=== PATIENT | female | born 1960 | race Caucasian/White ===

== ENCOUNTER 2016-10-16 15:19 | Emergency (ER) | payer MEDICAID ==
[2016-11-15 11:08] VITALS: BMI 20.3
== END 2016-10-16 20:20 | disposition home or self-care (01) ==
LOC: D.ER 15:19
DX: S09.90XA Unspecified injury of head, initial encounter (principal); W19.XXXA Unspecified fall, initial encounter; Y93.89 Activity, other specified; Y92.019 Unspecified place in single-family (private) house as the place of occurrence of the external cause; R42 Dizziness and giddiness; S50.01XA Contusion of right elbow, initial encounter

== ENCOUNTER 2016-11-14 20:47 | Inpatient (IN) | payer MEDICAID ==
[~2016-11-14] VITALS: Ht 170.2 cm; Wt 59.0 kg
[2016-11-14 21:39] LABS: BASOPHILS 0.1 % (0.0-2.0); EOSINOPHILS 0.1 % (0-7); HEMATOCRIT 40.2 % (36.0-48.0); HEMOGLOBIN 13.7 g/dL (12-16); IMMATURE GRANULOCYTES 0.3 % (0-5); LYMPHOCYTES 12.2 % (15-50); MCH 32.8 pg (26.0-34.0); MCHC 34.1 g/dL (31.0-37.0); MCV 96.2 fL (80.0-100.0); MEAN PLATELET VOLUME 10.5 fL (7.4-10.4); MONOCYTES 12.2 % (2-11); NEUTROPHILS 75.1 % (40-80); PLATELET COUNT 208 10x3/uL (130-400); RBC 4.18 10x6/uL (4.00-5.40); RDW 15.2 % (11.5-14.5); WBC 7.6 10x3/uL (4.8-10.8)
[2016-11-14 21:41] LABS: UDS - AMPHET NEGATIVE QUAL (NEGATIVE); UDS - BARB NEGATIVE QUAL (NEGATIVE); UDS - BENZO POSITIVE QUAL (NEGATIVE); UDS - COCAINE NEGATIVE QUAL (NEGATIVE); UDS - METH NEGATIVE QUAL (NEGATIVE); UDS - OPIATE NEGATIVE QUAL (NEGATIVE); UDS - PCP NEGATIVE QUAL (NEGATIVE); UDS - THC POSITIVE QUAL (NEGATIVE)
[2016-11-14 21:43] LABS: APPEARANCE CLEAR (CLEAR); BILIRUBIN NEGATIVE (NEGATIVE); COLOR YELLOW (YELLOW); GLUCOSE NEGATIVE (NEGATIVE); KETONE MODERATE mg/dL (NEGATIVE); LEUKOCYTE ESTERASE TRACE (NEGATIVE); NITRITE NEGATIVE (NEGATIVE); PROTEIN 3+ mg/dL (NEGATIVE); SPECIFIC GRAVITY 1.015 (1.005-1.020); UROBILINOGEN NORMAL (NORMAL)
[2016-11-14 21:46] LABS: BACTERIA FEW /hpf (NONE SEEN); EPITHELIAL CELLS 0-5 /hpf (0-5); HYALINE CAST OCC /lpf (NONE SEEN); MUCUS <1+ /lpf (NONE SEEN); RED CELLS - URINE 0-5 /hpf (0-5); WHITE CELLS - URINE 0-5 /hpf (0-5)
[2016-11-14 21:54] LABS: ALBUMIN 3.8 g/dL (3.4-5.0); ALKALINE PHOSPHATASE 85 U/L (46-116); ALT (SGPT) 141 U/L (10-68); BILIRUBIN - TOTAL 0.88 mg/dL (0.2-1.3); CALC OSMOLALITY 305 mosm/kg (275-300); CALCIUM 10.2 mg/dL (8.5-10.1); CARBON DIOXIDE 20.8 mmol/L (21.0-32.0); CHLORIDE - SERUM 104 mmol/L (98-107); CREATININE - SERUM 0.7 mg/dL (0.6-1.3); GLUCOSE 113 mg/dL (74-106); POTASSIUM - SERUM 3.1 mmol/L (3.5-5.1); SODIUM 145 mmol/L (136-145); UREA NITROGEN 57 mg/dL (7-18); eGFR NON AFRICAN AMERICAN > 90 mL/min (90-120)
[2016-11-14 22:46] LABS: APTT 26.2 SECONDS (22.8-39.4); INR 0.97 (0.85-1.17); PROTIME 12.7 SECONDS (11.6-15.0)
[2016-11-14 23:25] LABS: CREATINE KINASE 3976 UL (21-215); MAGNESIUM - SERUM 2.5 mg/dL (1.8-2.4)
[2016-11-14 23:26] LABS: CKMB 50.7 U/L (0.0-3.6)
--- NOTE | 2016-11-15 00:30 | NUR ---
RECIEVED TO ROOM 2234 VIA STRECHER FROM ER ACCOMPAINED BY STAFF. ALERT,ORIENTED. BRUISING NOTED TO RIGHT EYE AND RIGHT ARM. IV INFUSING TO LEFT ARM WITHOUT REDNESS OR EDEMA NOTED. TRANSFERRED TO BED. TOLERATED WELL. CL IN REACH.
--- NOTE | 2016-11-15 02:45 | NUR ---
EYES CLOSED. RESP EVEN AND UNLAOBRED. CL IN REACH.
[2016-11-15 03:19] VITALS: BP 120/72; BMI 20.4
--- NOTE | 2016-11-15 05:51 | NUR ---
EYES CLOSED RESP EVEN AND UNALBORED.REMAINS NPO FOR POSSIBLE OR THIS AM. CL IN REACH.
--- NOTE | 2016-11-15 07:15 | NUR ---
REPORT RECEIVED FROM BRINE TANK SEPARATOR OPERATOR NURSE. CALL LIGHT IN REACH.
[2016-11-15 07:59] LABS: ALBUMIN 3.4 g/dL (3.4-5.0); ALKALINE PHOSPHATASE 80 U/L (46-116); ALT (SGPT) 143 U/L (10-68); CALC OSMOLALITY 307 mosm/kg (275-300); CALCIUM 9.9 mg/dL (8.5-10.1); CARBON DIOXIDE 23.8 mmol/L (21.0-32.0); CHLORIDE - SERUM 109 mmol/L (98-107); CREATININE - SERUM 0.8 mg/dL (0.6-1.3); GLUCOSE 103 mg/dL (74-106); POTASSIUM - SERUM 3.2 mmol/L (3.5-5.1); SODIUM 148 mmol/L (136-145); UREA NITROGEN 51 mg/dL (7-18); eGFR NON AFRICAN AMERICAN 78 mL/min (90-120)
--- NOTE | 2016-11-15 08:26 | NUR ---
ASSESSMENT COMPLETED. CONSENT FORMS SIGNED AND WITNESSED. PATIENT WAS TOO SHAKY TO SIGN SO WE DID A VERBAL CONSENT WHICH WAS WITNESSED BY TWO NURSES AND THE DOCTOR. PREOP MEDS ADMINISTERED WITH SIP OF WATER. CALL LIGHT IN REACH. WILL CONTINUE WITH PLAN OF CARE.
[2016-11-15 08:27] VITALS: BP 122/71
--- NOTE | 2016-11-15 10:34 | NUR ---
1 AMP OF BICARB IN BAG IN FUSING ON ADMIT OF 2ND AMP ORDER
[2016-11-15 11:08] VITALS: Ht 170.2 cm; Wt 59.0 kg
[2016-11-15 11:18] VITALS: BP 165/86
--- NOTE | 2016-11-15 11:18 | NUR ---
RECEIVED BACK TO ROOM FROM RECOVERY VIA BED. O2 @ 2L PER NC. HR 118 BUT STATES NO PAIN AT THIS TIME. CALL LIGHT IN REACH. WILL CONTINUE WITH PLAN OF CARE.
--- NOTE | 2016-11-15 13:17 | NUR ---
PERCOCET PO PER C.O PAIN. CALL LIGHT IN REACH.
[2016-11-15] MEDS ORDERED: KEFLEX500 MG PO (14:10)
[2016-11-15] MEDS ORDERED: PHENAZOPYRIDIN200 MG PO (14:11)
--- NOTE | 2016-11-15 15:38 | NUR ---
Patient Name: JOYCE ERNST Admission Status: ER Accout number: [id number] Admission Date: 11-14-2016 : 1960 Admission Diagnosis:FRACTURE OF UNSP PART OF NECK OF RIGHT FEMUR, INIT Attending: CASEY Current LOS: 1 Anticipated DC Date: 11-18-2016 Planned Disposition: Home Primary Insurance: [place] PRIVATE OPTIONS G[place] Discharge Planning Comments: CM MET WITH PATIENT REGARDING D/C NEEDS AND PLANS. PATIENT STATED SHE LIVES ALONE AND WILL NEED A CAB RIDE HOME WHEN DISCHARGED. PATIENT STATED SHE HAS A SISTER JAE CABRERA THAT LIVES OUT OF TOWN. PATIENT STATED SHE HAS A WALKER, WHEELCHAIR, AND SHOWER CHAIR AT HOME IF NEEDED. PATIENTS PCP IS DR. SHIN AND [facility]ES [facility] FOR HER PHARMACY. PATIENT DENIED HOME HEALTH NEEDS AT DISCHARGE. CM WILL CONTINUE TO FOLLOW PATIENT WITH DISCHARGE NEEDS AND PLANS. PCP DR. ALEIDA HILL ([facility]ARMACY- [phone] JAE CABRERA (SISTER) [phone] Science Writer: Edelmira Hamilton Is the patient Alert and Oriented? Yes 0 * How many steps to enter\exit or inside your home? 0 0 * PCP DR. SHIN 0 * Pharmacy [facility] 0 * Preadmission Environment Home Alone 0 * ADLs Independent 0 * Equipment Shower Chair Walker Wheelchair 0 * List name and contact numbers for known caregivers / representatives who currently or will assist patient after discharge: JAE CABRERA ([place]) [phone] 0 * Community resources currently utilized None 0 * Additional services required to return to the preadmission environment? Yes 0 * Can the patient safely return to the preadmission environment? Yes 0 * Has this patient been hospitalized within the prior 30 days at any hospital? No 0 Grand Total: 0
--- NOTE | 2016-11-15 15:48 | NUR ---
SLEEPING QUIETLY RESP EVEN AND UNLABORED AT PRESENT DSG INTACT TO HIP AT PRESENT.
--- NOTE | 2016-11-15 15:49 | NUR ---
TEMP WAS 101.5. PATIENT HAD 5 BLANKETS ON HER. BLANKETS REMOVED AND IS GIVEN TO PATIENT AND EXPLAINED. RETURN DEMONSTRATION. NORCO PO PER PAIN. WILL RECHECK TEMP IN ONE HOUR.
[2016-11-15 16:55] VITALS: BP 103/55
--- NOTE | 2016-11-15 17:59 | NUR ---
VERY SHAKY AND ANXIOUS. ATIVAN IVP PER ORDER. C/O PAIN OF 9 TO RIGHT HIP. PERCOCET PO. VANCOMYCIN IVPB. CALL LIGHT IN REACH.
--- NOTE | 2016-11-15 18:40 | NUR ---
NO CHANGES IN INITIAL ASSESSMENT. CALL LIGHT IN REACH. SCDs TO BLE. WILL CONTINUE WITH PLAN OF CARE.
[2016-11-15 21:03] VITALS: BP 114/77
[2016-11-16 00:59] VITALS: BP 127/59
[2016-11-16 04:00] VITALS: BP 117/55
[2016-11-16 06:35] LABS: BASOPHILS 0.2 % (0.0-2.0); EOSINOPHILS 0.2 % (0-7); IMMATURE GRANULOCYTES 1.1 % (0-5); LYMPHOCYTES 20.5 % (15-50); MCH 31.7 pg (26.0-34.0); MEAN PLATELET VOLUME 9.7 fL (7.4-10.4); MONOCYTES 17.1 % (2-11); NEUTROPHILS 60.9 % (40-80); PLATELET COUNT 194 10x3/uL (130-400); RDW 15.7 % (11.5-14.5)
[2016-11-16 06:36] LABS: HEMATOCRIT 27.5 % (36.0-48.0); HEMOGLOBIN 8.8 g/dL (12-16); MCV 98.9 fL (80.0-100.0); RBC 2.78 10x6/uL (4.00-5.40); WBC 5.3 10x3/uL (4.8-10.8)
[2016-11-16 06:39] LABS: ALBUMIN 2.6 g/dL (3.4-5.0); ANION GAP 12.1 mmol/L (8-16); BILIRUBIN - TOTAL 0.7 mg/dL (0.2-1.3); CALCIUM 7.9 mg/dL (8.5-10.1); CARBON DIOXIDE 26.9 mmol/L (21.0-32.0); CREATININE - SERUM 0.9 mg/dL (0.6-1.3); MAGNESIUM - SERUM 2.2 mg/dL (1.8-2.4); PHOSPHOROUS 2.1 mg/dL (2.5-4.9); PROTEIN - SERUM 5.7 g/dL (6.4-8.2)
--- NOTE | 2016-11-16 07:30 | NUR ---
RECIEVED PT DURING WALKING ROUNDS. PT RESTING IN BED WITH COMPLAINTS OF PAIN OF A 7 ON A SCALE OF 1-10. NO MEDICATION TO BE GIVEN AT THIS TIME. ASSESSMENT DONE PER FLOWSHEET. BED IN LOW POSITION AND CALL LIGHT LETTY FINNEY. WILL CONTINUE TO MONITOR.
--- NOTE | 2016-11-16 07:50 | NUR ---
POTASSIUM AND PHOS COVERED PER PROTOCOL AT THIS TIME. WILL FOLLOW PROTOCOL FOR FOLLOW UP LABS AND MEDICATION ADMINISTRATION. PT SLIGHTY DISORIENTED AT THIS TIME, REORIENTED TO PLACE EASILY. BED IN LOW POSITION AND ALARM IN PLACE. WILL CONTINUE TO MONITOR.
[2016-11-16 07:59] VITALS: BP 97/60
--- NOTE | 2016-11-16 08:00 | NUR ---
LYING IN BED,WITHOUT DISTRESS.PT WANTING TO KNOW WHEN SHE WOULD GET HER MORNING MEDS.INSTRUCTED HER APPROX 0900.PT REQUEST ANXIETY MEDS WITH AM MEDS. CALL LIGHT IN REACH
--- NOTE | 2016-11-16 08:55 | NUR ---
ADMINISTERED PAIN MEDICATION AND ATIVAN PER ORDER AT THIS TIME. PT SEEMED TO RELAX SHORTLY AFTER MEDICATION ADMINISTRATION. BED IN LOW POSITION AND CALL LIGHT LETTY FINNEY. WILL CONTINUE TO MONTIOR.
--- NOTE | 2016-11-16 11:45 | NUR ---
PT HAD ARMS DRAWN TO CHEST AND WAS CONTINUOUSLY SHAKING PRIOR TO ADMINISTRATION OF VODKA PER ORDER.
--- NOTE | 2016-11-16 11:45 | NUR ---
ADMINISTERED VODKA PER ORDER AT THIS TIME. SPOKE WITH BONITA WEINBERG BEFORE ADMINISTRATION ABOUT ADMINISTERING THE VODKA INSTEAD OF ALTERNATIVE AND WAS INSTRUCTED TO GO FOURTH WITH ADMINISTERING THE VODKA. PT DRANK ADMINISTERED DOSE AND PROCEEDED TO ASK "WHERE IS THE REST OF THE BOTTLE" I INFORMED THE PT THAT THIS WAS ALL THE AMOUNT SHE WAS ALLOWED TO HAVE AT THIS TIME. PT SITTING IN THE CHAIR WITH ALARM IN PLACE AND CALL LIGHT IN REACH. WILL CONTINUE TO MONITOR.
[2016-11-16 12:08] VITALS: BP 131/77
--- NOTE | 2016-11-16 12:42 | NUR ---
SECOND DOSE OF PHOS GIVEN AT THIS TIME PER ORDER. POTASSIUM LAB BACK AND PT STILL HYPOKALEMIC, ADMINISTERED 40MEQ PER PROTOCOL. WILL CONTINUE TO MONITOR.
--- NOTE | 2016-11-16 13:40 | NUR ---
UPON ENTERING PTS ROOM, JUICE WITH PHOS AND POTASSIUM MIXED IN WAS EMPTY BUT IT WAS THEM OBSERVED THAT THE JUICE HAD BEEN SPILLED IN THE BED. UNSURE OF HOW MUCH MEDICATION PT RECIEVED. WILL CONTINUE TO FOLLOW PROTOCOL.
[2016-11-16 16:23] VITALS: BP 128/75
[2016-11-16 19:00] VITALS: BP 110/75
--- NOTE | 2016-11-16 19:48 | NUR ---
PATIENT RESTING IN BED WITH EYES CLOSED. NO SIGNS OF DISTRESS NOTED. RESPIRATIONS EVEN AND UNLABORED. BED LOW. CALL LIGHT WITHIN REACH.
--- NOTE | 2016-11-16 22:29 | NUR ---
PT IS ASLEEP WITH HOB AT 30 DEGREES. EASY RESPIRATION AND NO O2 AT THIS TIME. HER LIGHT ARE ON AND THE TV IS GOING IF SHE FELL ASLEEP WATCHING TV. THE BED IS LOW, RAILS UP X'S 2 WITH THE CALL LIGHT AT HAND.
[2016-11-17] VITALS: BP 110/73
[2016-11-17 04:00] VITALS: BP 117/78
[2016-11-17 04:51] LABS: BASOPHILS 0.2 % (0.0-2.0); EOSINOPHILS 2.2 % (0-7); HEMATOCRIT 28.1 % (36.0-48.0); HEMOGLOBIN 9.1 g/dL (12-16); IMMATURE GRANULOCYTES 1.3 % (0-5); LYMPHOCYTES 35.5 % (15-50); MCH 31.7 pg (26.0-34.0); MCHC 32.4 g/dL (31.0-37.0); MCV 97.9 fL (80.0-100.0); MEAN PLATELET VOLUME 9.6 fL (7.4-10.4); MONOCYTES 18.3 % (2-11); NEUTROPHILS 42.5 % (40-80); PLATELET COUNT 175 10x3/uL (130-400); RBC 2.87 10x6/uL (4.00-5.40); RDW 14.9 % (11.5-14.5); WBC 5.5 10x3/uL (4.8-10.8)
[2016-11-17 05:06] LABS: CALCIUM 8.3 mg/dL (8.5-10.1); CHLORIDE - SERUM 105 mmol/L (98-107); POTASSIUM - SERUM 3.5 mmol/L (3.5-5.1); SODIUM 139 mmol/L (136-145)
[2016-11-17 05:07] LABS: CALC OSMOLALITY 276 mosm/kg (275-300); CREATININE - SERUM 0.6 mg/dL (0.6-1.3); GLUCOSE 101 mg/dL (74-106); UREA NITROGEN 10 mg/dL (7-18); eGFR NON AFRICAN AMERICAN > 90 mL/min (90-120)
[2016-11-17 08:04] VITALS: BP 118/83
--- NOTE | 2016-11-17 08:40 | NUR ---
PRN PERCOCET AND VODKA ADMINISTERED PER ORDER AT THIS TIME. PT LETHARGIC, BUT CONVERSANT WHEN SPOKEN TO. ASSESSMENT PERFORMED PER FLOWSHEET. DRESSING TO RIGHT HIP C/D/I. ENCOURAGED PT TO USE INCENTIVE SPIROMETER WITH 750ML OF INSPIRATORY VOLUME. PULLED UPRIGHT AND REPOSITIONED IN BED. IV TO LEFT WRIST PATENT WITH NO S/S OF INFILTRATION PRESENT. BOX ALARM IN USE AND ON FOR FALL PRECAUTIONS. SCD'S ON AND IN WORKING ORDER. CALL LIGHTIN REACH, SRX2 WITH BED IN LOWEST POSITION AND WHEELS LOCKED. DOOR REMAINS OPEN. WILL CONTINUE WITH PLAN OF CARE.
--- NOTE | 2016-11-17 09:00 | NUR ---
ABRAMS CARE PROVIDED WITH ABRAMS CARE WIPES.
--- NOTE | 2016-11-17 12:45 | NUR ---
20G IV SITED TO PT'S LEFT HAND X1 ATTEMPT. PT D/C HER LEFT HAND IV WITH CATH TIP INTACT. PT REMAINS CONFUSED. CALL LIGHT IN REACH, BOX ALARM ON AND IN WORKING ORDER. SRX2 WITH BED IN LOWEST POSITION AND WHEELS LOCKED. WILL CONTINUE WITH PLAN OF CARE.
--- NOTE | 2016-11-17 15:50 | NUR ---
GIVEN PRN TYLENOL PER ORDER FOR TEMPERATURE 100.4. PT REMAINS CONFUSED REGARDING SITUATION, PLACE AND TIME. CALL LIGHT IN REACH, WILL CONTINUE WITH PLAN OF CARE.
[2016-11-17 16:14] VITALS: BP 97/63
--- NOTE | 2016-11-17 17:10 | NUR ---
GIVEN PRN PERCOCET-10 PER ORDER FOR PAIN 8/10 INCISIONALLY. POSITIONED UPRIGHT IN BED, SO THAT SHE COULD EAT.
--- NOTE | 2016-11-17 19:25 | NUR ---
CM RECEIVED MD ORDER TO ARRANGE FOR INPATIENT ALCOHOL REHAB. PATIENT IS CONFUSED AND CANNOT PARTCIPATE IN THE ADMISSION PROCESS. THEY LIKELY WILL NOT TAKE A POD#2 PATIENT INTO AN ALCOHOL REHAB INPATIENT UNIT. CM WILL NEED TO CONTACT FACILITIES ON FRIDAY WHEN ADMINISTRATIVE AND NURSING PERSONNEL WILL BE AVAILABLE TO EVALUATE APPROPRAITENESS FOR THEIR SPECIFIC PROGRAM. PSYCH CONSULT MAYBE HELPFUL IN PLANNING. PATIENT IS UNABLE TO PARTICIPATE W/ PHYSICAL THERAPIST AT THIS TIME. CM WILL FOLLOW.
--- NOTE | 2016-11-17 19:45 | NUR ---
PATIENT RESTING IN BED. NO SIGNS OF DISTRESS NOTED. SOME CONFUSION. LINENS CHANGED. DENIES ANY NEEDS AT THIS TIME. BED LOW. CALL LIGHT IN REACH. ALARM ON.
[2016-11-17 21:00] VITALS: BP 112/80
--- NOTE | 2016-11-18 00:50 | NUR ---
PATIENT VERY CONFUSED. PULLED OUT IV. ATTEMPTING TO PULL OUT ABRAMS. NEW IV STARTED TO RIGHT FOREARM. ATTEMPTED TO REORIENT AND UNSUCCESFUL. DENIES NEEDS AT THIS TIME. BED LOW. CALL LIGHT IN REACH.
--- NOTE | 2016-11-18 02:16 | NUR ---
EYES CLOSED RESPIRATIONS WITH EASE AND UNLABORED. SR UP X2 CALL LIGHT WITHIN REACH.
[2016-11-18 05:00] VITALS: BP 120/72
[2016-11-18 05:32] LABS: BASOPHILS 0.2 % (0.0-2.0); EOSINOPHILS 2.3 % (0-7); HEMOGLOBIN 9.6 g/dL (12-16); IMMATURE GRANULOCYTES 0.8 % (0-5); MCH 31.8 pg (26.0-34.0); MCHC 33.1 g/dL (31.0-37.0); MEAN PLATELET VOLUME 9.5 fL (7.4-10.4); MONOCYTES 19.4 % (2-11); NEUTROPHILS 54.3 % (40-80); RBC 3.02 10x6/uL (4.00-5.40); RDW 14.1 % (11.5-14.5); WBC 5.2 10x3/uL (4.8-10.8)
[2016-11-18 05:40] LABS: PLATELET COUNT 220 10x3/uL (130-400)
[2016-11-18 05:49] LABS: CALC OSMOLALITY 276 mosm/kg (275-300); CALCIUM 8.8 mg/dL (8.5-10.1); CARBON DIOXIDE 27.8 mmol/L (21.0-32.0); CHLORIDE - SERUM 103 mmol/L (98-107); CREATININE - SERUM 0.6 mg/dL (0.6-1.3); GLUCOSE 100 mg/dL (74-106); SODIUM 140 mmol/L (136-145); UREA NITROGEN 7 mg/dL (7-18); eGFR NON AFRICAN AMERICAN > 90 mL/min (90-120)
--- NOTE | 2016-11-18 07:55 | NUR ---
AWAKE AND ALERT. IV TO RIGHT WRIST PATENT WITH NO S/S OF INFILTRATION PRESENT. SCD'S ON AND IN WORKING ORDER. PT ORIENTED TO SELF, PLACE AND SITUATION, BUT DISORIENTED TO TIME. BONITA DORMAN WITH DR VALENCIA SEEING PT AT THIS TIME. CALL LIGHT IN REACH AND BOX ALARM ON AND IN WORKING ORDER. WILL CONTINUE WITH PLAN OF CARE.
[2016-11-18 08:52] VITALS: BP 139/93
--- NOTE | 2016-11-18 09:34 | NUR ---
PRN PERCOCET-10 ADMINISTERED AT THIS TIME PER ORDER FOR INCISIONAL PAIN. TAKEN WITHOUT DIFFICULTY. DENIES NEEDS AT THIS TIME. ABRAMS PATENT AND DRAINING TO GRAVITY. WILL CONITNUE WITH PLAN OF CARE.
--- NOTE | 2016-11-18 10:15 | NUR ---
UP IN CHAIR PER PHYSICAL THERAPY AT THIS TIME. WILL CONTINUE WITH PLAN OF CARE. CALL LIGHT IN REACH.
--- NOTE | 2016-11-18 10:41 | NUR ---
Rehab Prescreening Consult recieved and the chart has been reviewed. Unfortunatley she has [employer] Private [employer] insurance which does not cover rehab at [facility]. Recommend a referral be made to another facility. Discussed with the CM Inna Santamaria RN. Juliann Corbett RN Clinical Liaison, Rehab
[2016-11-18 12:32] VITALS: BP 125/82
[2016-11-18 15:32] VITALS: BP 120/81
--- NOTE | 2016-11-18 17:52 | NUR ---
PRN PERCOCET-10 ADMINISTERED PER ORDER. ABRAMS CATHETER CARE PROVIDED WITH ABRAMS CATH CARE WIPES. CALL LIGHT IN REACH. WILL CONTINUE WITH PLAN OF CARE.
--- NOTE | 2016-11-18 18:45 | NUR ---
ABRAMS CATH D/C WITH CATH TIP INTACT. INSTRUCTED PT THAT SHE WOULD HAVE TO CALL WHEN SHE NEEDED TO VOID. PT VERBALIZED UNDERSTANDING.
[2016-11-18 21:00] VITALS: BP 124/81
--- NOTE | 2016-11-18 21:57 | NUR ---
PATIENT RESTING IN BED. NO SIGNS OF DISTRESS NOTED AT THIS TIME. PRN NORCO AND VODRA GIVEN AND PATIENT REQUEST. NO OTHER NEEDS VOICED AT THIS TIME. BED LOW. CALL LIGHT IN REACH.
--- NOTE | 2016-11-19 00:10 | NUR ---
PT IN BED WITH NO DISTRESS. RESPIRATIONS EVEN AND UNLABORED. SIDE RAILS ARE UP X 2. BED IS LOW. CALL LIGHT IS IN REACH.
[2016-11-19 01:00] VITALS: BP 130/77
[2016-11-19 04:54] LABS: BASOPHILS 0.2 % (0.0-2.0); EOSINOPHILS 2.3 % (0-7); HEMOGLOBIN 9.9 g/dL (12-16); IMMATURE GRANULOCYTES 0.7 % (0-5); LYMPHOCYTES 25.1 % (15-50); MCH 31.4 pg (26.0-34.0); MCV 95.2 fL (80.0-100.0); MEAN PLATELET VOLUME 9.9 fL (7.4-10.4); MONOCYTES 22.8 % (2-11); NEUTROPHILS 48.9 % (40-80); RBC 3.15 10x6/uL (4.00-5.40); RDW 13.9 % (11.5-14.5); WBC 6.1 10x3/uL (4.8-10.8)
[2016-11-19 05:00] VITALS: BP 122/69
[2016-11-19 05:00] LABS: PLATELET COUNT 304 10x3/uL (130-400)
[2016-11-19 05:09] LABS: CALC OSMOLALITY 276 mosm/kg (275-300); CALCIUM 8.8 mg/dL (8.5-10.1); CARBON DIOXIDE 27.6 mmol/L (21.0-32.0); CHLORIDE - SERUM 104 mmol/L (98-107); CREATININE - SERUM 0.6 mg/dL (0.6-1.3); GLUCOSE 97 mg/dL (74-106); MAGNESIUM - SERUM 1.6 mg/dL (1.8-2.4); PHOSPHOROUS 3.7 mg/dL (2.5-4.9); POTASSIUM - SERUM 3.8 mmol/L (3.5-5.1); SODIUM 140 mmol/L (136-145); UREA NITROGEN 6 mg/dL (7-18); eGFR NON AFRICAN AMERICAN > 90 mL/min (90-120)
--- NOTE | 2016-11-19 07:29 | NUR ---
AWAKE AND ALERT AT THIS TIME. EXPLAINED TO PT THAT A URINE SAMPLE NEEDED TO BE OBTAINED WHEN SHE WAS ABLE TO PROVIDE ONE. IV TO RIGHT WRIST S/L. BALTA MAT ALARM APPLIED TO BED. SCD'S ON AND IN WORKING ORDER. ASSESSMENT PERFORMED PER FLOW SHEET. ADMINISTERED PRN NORCO-10 FOR PAIN 9/10 INCISIONALLY. CALL LIGHT IN REACH, BED IN LOWEST POSITION WITH SRX2 AND WHEELS LOCKED. PT SELF POSITIONS IN BED FOR COMFORT. WILL CONTINUE WITH PLAN OF CARE.
[2016-11-19 08:33] VITALS: BP 136/94
--- NOTE | 2016-11-19 10:15 | NUR ---
UP TO BEDSIDE COMMODE AT THIS TIME. BATH PROVIDED AND PT INSTRUCTED TO USE THE CALL LIGHT WHEN SHE WAS FINISHED ON THE BEDSIDE COMMODE. PT VERBALIZED UNDERSTANDING CALL LIGHT IN REACH. RIGHT HIP DRESSING REMOVED AND REPLACED IN STERILE FASHION WITH AQUACEL AG DRESSING.
--- NOTE | 2016-11-19 11:35 | NUR ---
PRN NORCO-10 ADMINISTERED AT THIS TIME FOR PAIN 10/10 INCISIONALLY. PT UP IN CHAIR PER PHYSICAL THERAPY AT THIS TIME. DENIES FURTHER NEEDS. CALL LIGHT IN REACH, WILL CONTINUE WITH PLAN OF CARE.
--- NOTE | 2016-11-19 11:45 | NUR ---
CM REASSESSMENT NOTE: REFERRAL WAS SENT TO [facility] FOR PATIENT. ALIDA AT [facility] CAME AND VISITED WITH PATIENT. PATIENT IS A GOOD CANDIDATE AND THEY ARE WAITING 24HRS FROM WHEN BANANA BAG WAS DISCONTINUED. PATIENT WILL PROBABLY BE ACCEPTED TOMORROW TO REHAB IF HER BLOOD PRESSURE IS STABLE AND NO SIGNES OF DT'S. CM WILL CONTINUE TO FOLLOW PATIENT WITH D/C NEEDS AND PLANS.
[2016-11-19 12:08] VITALS: BP 119/89
--- NOTE | 2016-11-19 13:15 | NUR ---
EATING LUNCH AT THIS TIME. DENIES NEEDS. CALL LIGHT IN REACH, BALTA MAT ALARM ON AND IN WORKING ORDER. WILL CONTINUE WITH PLAN OF CARE.
[2016-11-19 14:55] LABS: APPEARANCE CLEAR (CLEAR); BILIRUBIN NEGATIVE (NEGATIVE); COLOR YELLOW (YELLOW); GLUCOSE NEGATIVE (NEGATIVE); KETONE NEGATIVE (NEGATIVE); LEUKOCYTE ESTERASE NEGATIVE (NEGATIVE); NITRITE NEGATIVE (NEGATIVE); PROTEIN NEGATIVE (NEGATIVE); UROBILINOGEN NORMAL (NORMAL)
--- NOTE | 2016-11-19 14:55 | NUR ---
NUTRITION MONITORING & EVAL CHART REVIEWED. PT TOLERATING REG DIET 75% INTAKE. WILL CONTINUE TO PROVIDE DIET, MONITOR PT PROGRESS. RD FOLLOWING
[2016-11-19 15:17] VITALS: BP 113/72
--- NOTE | 2016-11-19 15:31 | NUR ---
PRN NORCO-10 ADMINISTERED PER ORDER FOR MAYES 8/10 INCISIONALLY. CALL LIGHT IN REACH, WILL CONTNUE WITH PLAN OF CARE. SRX2 WITH BALTA MAT ALARM IN USE. WILL CONTINUE WITH PLAN OF CARE.
--- NOTE | 2016-11-19 18:34 | NUR ---
FULL LINEN CHANGE PERFORMED AT THIS TIME D/T INCONTINENCE.
--- NOTE | 2016-11-19 19:46 | NUR ---
OT NOTE: PT COMPLETED TOILETING WITH CGA. PT COMPLETED DYNAMIC SITTING BALANCE WITH CGA. PT REQUIRED MIN A FOR BSC TO BED TRANSFER. PT COMPLETED LUE GROSS MOTOR AXS FOR INCREASED WITH ADLS. THANK YOU, SHAN SEBASTIAN/Chelsea
--- NOTE | 2016-11-19 20:56 | NUR ---
PATIENT RESTING IN BED. ALERT AND ORIENTED. NO SIGNS OF DISTRESS NOTED. RESPIRATIONS EVEN AND UNLABORED. DENIES NEEDS AT THIS TIME. BED LOW. CALL LIGHT IN REACH
[2016-11-19 21:00] VITALS: BP 102/68
--- NOTE | 2016-11-20 00:04 | NUR ---
ASSISTED TO BEDSIDE COMMODE. DENIES ANY OTHER NEEDS AT THIS TIME. BED LOW. CALL LIGHT IN REACH. BED ALARM ON.
[2016-11-20 01:00] VITALS: BP 110/70
--- NOTE | 2016-11-20 03:00 | NUR ---
RESTING WITH EYES CLOSED, RESP WITH EASE, NO DISTRESS NOTED, SR'S UP X2, BED ALARM ON, CL IN REACH
--- NOTE | 2016-11-20 04:28 | NUR ---
SITTING AT THE NURSES STATION HEARD A LOUD BANGING NOISE. UPON ENTERING ROOM PATIENT FOUND ON FLOOR. BALTA MAT TURNED ON BUT NOT SOUNDING. PATIENT ALERT AND ORIENTED. COMPLAINTS OF PAIN TO RIGHT HIP AND HEAD. ABRASION NOTED TO RIGHT ELBOW. NEURO CHECK WNL. OPERATION AGENT NOTIFIED. INSTRUCTIONS RECEIVED TO NOT INFORM MD UNTIL 0600. VITAL SIGNS 142/86, PULSE 91, TEMP 97.9, RESP 20 O2 SAT 98% ON RA. PATIENT REQUESTING PAIN MEDICATION. INSTRUCTED PATIENT THAT MEDICATION CAN MASK SYMPTOMS AND TO HOLD OFF UNTIL MD NOTIFIED. VERBALIZED UNDERSTANDING. PATIENT BED SWITCHED TO BED WITH BUILT IN ALARM. NEW BALTA MAT PLACED AND CHECKED FOR PROPER FUNCTION. BED LOW. CALL LIGHT IN REACH.
[2016-11-20 05:00] VITALS: BP 142/86
[2016-11-20 05:52] LABS: HEMATOCRIT 32.2 % (36.0-48.0); HEMOGLOBIN 10.4 g/dL (12-16); MCH 31.8 pg (26.0-34.0); MCHC 32.3 g/dL (31.0-37.0); RBC 3.27 10x6/uL (4.00-5.40); RDW 14.1 % (11.5-14.5); WBC 5.9 10x3/uL (4.8-10.8)
[2016-11-20 06:11] LABS: MCV 98.5 fL (80.0-100.0); PLATELET COUNT 372 10x3/uL (130-400)
[2016-11-20 06:15] LABS: CALC OSMOLALITY 276 mosm/kg (275-300); CARBON DIOXIDE 23.9 mmol/L (21.0-32.0); CHLORIDE - SERUM 103 mmol/L (98-107); CREATININE - SERUM 0.6 mg/dL (0.6-1.3); GLUCOSE 90 mg/dL (74-106); POTASSIUM - SERUM 3.9 mmol/L (3.5-5.1); SODIUM 140 mmol/L (136-145); UREA NITROGEN 6 mg/dL (7-18); eGFR NON AFRICAN AMERICAN > 90 mL/min (90-120)
[2016-11-20] MEDS ORDERED: ELIQUIS2.5 MG PO (06:56)
[2016-11-20] MEDS ORDERED: LIBRIUM25 MG PO (06:57)
[2016-11-20] MEDS ORDERED: HYDROCODONE-APA1 TAB PO (06:57)
[2016-11-20] MEDS ORDERED: ACETAMINOPHEN325 MG PO (06:57)
--- NOTE | 2016-11-20 07:25 | NUR ---
PATIENT RECEIVED ALERT IN LOW FISCHER POSITION. RESPIRATIONS EVEN AND UNLABORED. SIDE RAILS UP X2. BED IN LOW POSITION. CALL LIGHT IN REACH. BED ALARM ON.
--- NOTE | 2016-11-20 07:56 | NUR ---
11/20/2016 7:55 DCP: Discharge Planning Update with DC Med Rec & [facility] Waiting final determination.
[2016-11-20 07:58] LABS: ANISOCYTOSIS OCC; EOSINOPHILS 3 % (0-7); HYPOCHROMASIA OCC; LYMPHOCYTES 26 % (15-50); MONOCYTES 20 % (2-11); NEUTROPHILS 50 % (40-80); PLATELET ESTIMATE NORMAL
[2016-11-20 08:09] VITALS: BP 94/69
--- NOTE | 2016-11-20 08:37 | NUR ---
PATIENT ALERT IN BED EATING BREAKFAST. TOLERATING WELL. SCHEDULED MEDICATION ADMINSITERED WELL PRN LIBRIUM. DENIES FURTHER NEEDS. SIDE RAILS UP X2. BED IN LOW POSITION. CALL LIGHT IN REACH. BED ALARM ON.
--- NOTE | 2016-11-20 10:30 | NUR ---
PATIENT IN MID FISCHER POSITION RESTING WITH EYES CLOSED. RESPIRATIONS EVEN AND UNLABORED. SIDE RAILS UP X2. BED IN LOW POSITION. CALL LIGHT IN REACH.
--- NOTE | 2016-11-20 11:50 | NUR ---
IV TO RIGHT FOREARM D/C WITH CATH TIP INTACT. SITE COVERED WITH GAUZE AND BANDAID. WELL TOLERATED.
[2016-11-20 11:56] VITALS: BP 117/76
--- NOTE | 2016-11-20 13:15 | NUR ---
11/20/2016 13:12 DCP: Discharge Planning Rec'd call from Tiffany with [facility] - patient has been accepted and will transfer this afternoon to an inpatient rehab bed - Room 319. Transport van will pick her up around 1400. Nursing to call report to [phone].
--- NOTE | 2016-11-20 13:29 | NUR ---
[facility] RECEIVING REPORT
--- NOTE | 2016-11-20 14:02 | NUR ---
PATIENT D/C TO [facility]. D/C WITH REHAB FACITILTY STAFF VIA WHEELCHAIR
== END 2016-11-20 14:02 | DRG 470 ==
LOC: D.ER 20:47 → D.MS 22:40
PROVIDERS: Emergency Medicine; Family Medicine; Orthopaedic Surgery; ADMIT Family Medicine
PROC: 0SRR0JZ Replacement of Right Hip Joint, Femoral Surface with Synthetic Substitute, Open Approach (ICD-10-PCS; principal; 2016-11-15 09:30)
DX: S72.001A Fracture of unspecified part of neck of right femur, initial encounter for closed fracture (principal); S42.301A Unspecified fracture of shaft of humerus, right arm, initial encounter for closed fracture; D62 Acute posthemorrhagic anemia; W19.XXXA Unspecified fall, initial encounter; Z91.81 History of falling; S00.11XA Contusion of right eyelid and periocular area, initial encounter; F10.20 Alcohol dependence, uncomplicated; F12.90 Cannabis use, unspecified, uncomplicated; Y90.3 Blood alcohol level of 60-79 mg/100 ml; F19.90 Other psychoactive substance use, unspecified, uncomplicated; G35 Multiple sclerosis; F17.200 Nicotine dependence, unspecified, uncomplicated; I10 Essential (primary) hypertension; K58.9 Irritable bowel syndrome, unspecified

== ENCOUNTER → 2017-02-05 10:57 | Outpatient (CLI) | payer MEDICAID ==
[2016-11-15 11:08] VITALS: BMI 20.3
[~2017-02-05 10:57] MED LIST: ACETAMINOPHEN325 MG PO; ELIQUIS2.5 MG PO; HYDROCODONE-APA1 TAB PO; KEFLEX500 MG PO; LIBRIUM25 MG PO; PHENAZOPYRIDIN200 MG PO
== END | disposition home or self-care (01) ==
LOC: D.MRI 10:57
DX: M25.511 Pain in right shoulder (principal)

== ENCOUNTER → 2017-12-16 09:54 | Outpatient (CLI) | payer MEDICAID ==
[2016-11-15 11:08] VITALS: BMI 20.3
[2017-12-22 07:09] LABS: OVA + PARASITE EXAM Final report (())
== END | disposition home or self-care (01) ==
LOC: D.LAB 12-12 15:00
PROVIDERS: Internal Medicine Gastroenterology
DX: R19.7 Diarrhea, unspecified (principal)

== ENCOUNTER → 2018-01-16 10:01 | Outpatient (CLI) | payer MEDICAID ==
[2016-11-15 11:08] VITALS: BMI 20.3
[2018-01-21 04:43] LABS: OVA + PARASITE EXAM Final report (())
== END | disposition home or self-care (01) ==
LOC: D.LAB 10:00
PROVIDERS: Internal Medicine Gastroenterology
DX: R19.7 Diarrhea, unspecified (principal)

== ENCOUNTER 2018-02-08 04:14 | Emergency (ER) | payer MEDICAID ==
[2016-11-15 11:08] VITALS: BMI 20.3
[2018-02-08 04:54] LABS: BASOPHILS 0.8 % (0-2); EOSINOPHILS 4.2 % (0-7); HEMATOCRIT 36.5 % (36.0-48.0); HEMOGLOBIN 12.7 g/dL (12-16); IMMATURE GRANULOCYTES 0.2 % (0-5); LYMPHOCYTES 38.1 % (15-50); MCH 32.9 pg (26.0-34.0); MCHC 34.8 g/dL (31.0-37.0); MCV 94.6 fL (80.0-100.0); MEAN PLATELET VOLUME 8.9 fL (7.4-10.4); MONOCYTES 7.5 % (2-11); NEUTROPHILS 49.2 % (40-80); PLATELET COUNT 247 10x3/uL (130-400); RBC 3.86 10x6/uL (4.00-5.40); RDW 12.8 % (11.5-14.5); WBC 5.2 10x3/uL (4.8-10.8)
[2018-02-08 05:07] LABS: ALBUMIN 4.1 g/dL (3.4-5.0); ALKALINE PHOSPHATASE 77 U/L (46-116); ALT (SGPT) 23 U/L (10-68); CALC OSMOLALITY 279 mosm/kg (275-300); CALCIUM 8.7 mg/dL (8.5-10.1); CARBON DIOXIDE 22.7 mmol/L (21.0-32.0); CHLORIDE - SERUM 102 mmol/L (98-107); CREATININE - SERUM 0.7 mg/dL (0.6-1.3); GLUCOSE 86 mg/dL (74-106); POTASSIUM - SERUM 4.7 mmol/L (3.5-5.1); SODIUM 140 mmol/L (136-145); UREA NITROGEN 17 mg/dL (7-18); eGFR NON AFRICAN AMERICAN > 90 mL/min (90-120)
== END 2018-02-08 06:48 | disposition home or self-care (01) ==
LOC: D.ER 04:14
PROVIDERS: Family Medicine
DX: S09.90XA Unspecified injury of head, initial encounter (principal); W18.30XA Fall on same level, unspecified, initial encounter; Y93.89 Activity, other specified; Y92.019 Unspecified place in single-family (private) house as the place of occurrence of the external cause; S01.01XA Laceration without foreign body of scalp, initial encounter; F10.10 Alcohol abuse, uncomplicated; F10.129 Alcohol abuse with intoxication, unspecified; F17.200 Nicotine dependence, unspecified, uncomplicated

== ENCOUNTER 2018-04-28 18:01 | Emergency (ER) | payer MEDICAID ==
[~2018-04-28] VITALS: Ht 170.2 cm; Wt 54.5 kg
[2018-04-28 18:19] VITALS: BP 143/53; Ht 170.2 cm; Wt 54.5 kg
[2018-04-28] MEDS ORDERED: CELEXA10 MG (18:21)
[2018-04-28] MEDS ORDERED: WELLBUTRIN SR150 MG (18:21)
[2018-04-28] MEDS ORDERED: VOLTAREN75 MG PO (20:36)
== END 2018-04-28 21:05 | disposition home or self-care (01) ==
LOC: D.ER 18:01
DX: M79.672 Pain in left foot (principal); G35 Multiple sclerosis; F17.200 Nicotine dependence, unspecified, uncomplicated

== ENCOUNTER 2018-06-01 05:48 | Emergency (ER) | payer MEDICAID ==
[~2018-06-01] VITALS: Ht 170.2 cm; Wt 54.4 kg
[~2018-06-01 05:48] MED LIST changes: +CELEXA10 MG; +VOLTAREN75 MG PO; +WELLBUTRIN SR150 MG
[2018-06-01 05:51] VITALS: Ht 170.2 cm; Wt 54.4 kg
[2018-06-01 06:35] LABS: BASOPHILS 0.5 % (0-2); HEMATOCRIT 32.7 % (36.0-48.0); HEMOGLOBIN 11.6 g/dL (12-16); IMMATURE GRANULOCYTES 0.2 % (0-5); MCH 33.5 pg (26.0-34.0); MCHC 35.5 g/dL (31.0-37.0); MCV 94.5 fL (80.0-100.0); MEAN PLATELET VOLUME 9.1 fL (7.4-10.4); MONOCYTES 9.4 % (2-11); NEUTROPHILS 73.9 % (40-80); PLATELET COUNT 206 10x3/uL (130-400); RBC 3.46 10x6/uL (4.00-5.40); WBC 4.1 10x3/uL (4.8-10.8)
[2018-06-01 06:48] LABS: ALBUMIN 3.4 g/dL (3.4-5.0); ANION GAP 14.3 mmol/L (8-16); BILIRUBIN - TOTAL 1.14 mg/dL (0.2-1.3); CALCIUM 8.2 mg/dL (8.5-10.1); CARBON DIOXIDE 24.8 mmol/L (21.0-32.0); CREATININE - SERUM 1.4 mg/dL (0.6-1.3); MAGNESIUM - SERUM 1.1 mg/dL (1.8-2.4); POTASSIUM - SERUM 3.1 mmol/L (3.5-5.1); PROTEIN - SERUM 6.7 g/dL (6.4-8.2)
[2018-06-01] MEDS ORDERED: HYDROCODON-ACE1 EAC7 PO (08:34)
[2018-06-01 09:35] VITALS: BP 147/99
== END 2018-06-01 09:36 | disposition home or self-care (01) ==
LOC: D.ER 05:48
PROVIDERS: Emergency Medicine
DX: F10.239 Alcohol dependence with withdrawal, unspecified (principal); S82.001A Unspecified fracture of right patella, initial encounter for closed fracture; S22.31XA Fracture of one rib, right side, initial encounter for closed fracture; X58.XXXA Exposure to other specified factors, initial encounter; Y93.89 Activity, other specified; Y92.019 Unspecified place in single-family (private) house as the place of occurrence of the external cause; R11.2 Nausea with vomiting, unspecified; R19.7 Diarrhea, unspecified; G35 Multiple sclerosis; F17.200 Nicotine dependence, unspecified, uncomplicated; I44.4 Left anterior fascicular block; R00.0 Tachycardia, unspecified

== ENCOUNTER 2018-07-27 16:58 | Day surgery (SDC) | payer MEDICAID ==
[2018-07-24 10:52] LABS: HEMATOCRIT 33.7 % (36.0-48.0); HEMOGLOBIN 11.5 g/dL (12-16); MCH 32.9 pg (26.0-34.0); MCHC 34.1 g/dL (31.0-37.0); MCV 96.3 fL (80.0-100.0); MEAN PLATELET VOLUME 8.1 fL (7.4-10.4); RBC 3.5 10x6/uL (4.00-5.40); RDW 15.2 % (11.5-14.5)
[~2018-07-27] VITALS: Ht 170.2 cm; Wt 56.7 kg
--- NOTE | ~2018-07-27 | OP ---
PATIENT NAME: JOYCE ERNST MEDICAL RECORD: [id number] :58 LOCATION:D.OPS ADMISSION DATE: SURGEON: NILSA VALENCIA MD DATE OF OPERATION: 07/27/2018 PREOPERATIVE DIAGNOSIS: Displaced fifth metacarpal fracture of the right hand. POSTOPERATIVE DIAGNOSIS: Displaced fifth metacarpal fracture of the right hand. PROCEDURE: Closed reduction and percutaneous pinning of displaced fifth metacarpal fracture of the hand. SURGEON: Nilsa Valencia MD ANESTHESIA: General. INTRAOPERATIVE COMPLICATIONS: None. SUMMARY OF PATHOLOGIC FINDINGS: Consistent with preoperative diagnosis, the patient had a knuckle and palm deformity that reduced nicely and was very amenable to closed pinning. OPERATIVE SUMMARY IN DETAIL: After obtaining the appropriate preoperative orthopedic surgery consent as well as anesthetic consultation, evaluation, and clearance, the patient was brought to the operating room and placed on the operating table in the supine position. After general laryngeal mask was administered, a tourniquet was placed about the proximal aspect of the right upper extremity, but it was not used during this case. Right upper extremity was then prepped and draped in routine sterile fashion. Closed reduction maneuver was performed under direct fluoroscopic guidance. A 0.062 cross wire pinning was then performed for excellent stability. Final radiographs were taken in AP, lateral, and oblique views and sent to radiologist for final review. The K-wires were cut. Jergens balls were placed. Sterile dressings were applied. Ulnar gutter splint was applied. The patient was awakened and taken to recovery room in stable condition. All final needle and sponge counts were correct. TRANSINT:[id number] Voice Confirmation ID: [id number] DOCUMENT ID: [id number] 08/03/18 Edited for network analyst errors, estephanie. NILSA VALENCIA MD at 1305 CC: [id number] DICTATION DATE: 07/28/18 1707 ASSEMBLER BRAZER: 07/28/18 1748 [facility] 07/27/[address] [address]
[2018-07-27 11:04] VITALS: BP 149/93; Ht 170.2 cm; Wt 56.7 kg
[~2018-07-27 16:58] MED LIST changes: -CELEXA10 MG; +CELEXA10 MG PO; +DILAUDID2 MG PO; +HYDROCODON-ACE1 EAC7 PO
== END 2018-07-27 16:59 | disposition home or self-care (01) ==
LOC: D.OPS 16:58
PROVIDERS: Anesthesiology
DX: S62.396A Other fracture of fifth metacarpal bone, right hand, initial encounter for closed fracture (principal)

== ENCOUNTER 2021-01-18 09:57 | Outpatient (CLI) | payer MEDICARE ==
[~2021-01-18] VITALS: Ht 170.2 cm; Wt 68.2 kg
[2021-01-18 10:23] VITALS: BP 140/87; Ht 170.2 cm; Wt 68.2 kg
== END 2021-01-18 10:31 | disposition home or self-care (01) ==
LOC: D.OPS 09:57
PROVIDERS: ATTEND Family Medicine
DX: M81.0 Age-related osteoporosis without current pathological fracture (principal)